=== PATIENT | male | born 1950 | race Caucasian/White ===

== ENCOUNTER 2022-11-03 13:45 | Emergency (ER) | payer OTHER, SELFPAY ==
--- NOTE | ~2022-11-03 | XR_ITS ---
[XR ribs RT 2V ] INDICATION: Right lower rib pain TECHNIQUE: Frontal projection of the upper right ribs, frontal projection of the lower right ribs, ob lique projection of all the right ribs, frontal inspiratory chest x-ray for interpretation. FINDINGS: There are no displaced rib fractures identified. There are no soft tissue abnormality see n. The lungs are clear. IMPRESSION: 1:No acute displaced rib fractures. Reviewed, dictated and finalized at location A.
[2022-11-03 13:55] VITALS: BP 131/71; PULSE 55; RESP 18; TEMP 37.1; O2SAT 99
--- NOTE | 2022-11-03 14:55 | ED.BACK ---
HPI - Back Pain/Injury General Chief Complaint: Back Pain/Injury Stated Complaint: Fall Injury/Right Rib Pain Time Seen by Provider: 11/03/22 14:55 Source: patient Mode of arrival: ambulatory Limitations: no limitations History of Present Illness HPI Narrative: 71-year-old male who presents to [facility] with complaints of falling against open bleacher and hit his right flank region. This morning he stretched and felt a pop along his right posterior rib area with some residual pain to the area especially with movement.. Patient denies any shortness of breath or any pain with deep breathing. Patient has not taken any OTC medication for his discomfort MD elicited complaint: other (right posterior rib pain) Onset (ago): day(s) (3 days inital fall against bleacher this am felt pop) Pain scale (0-10): 4 Treatments prior to arrival: other (none) Work related injury: No Related Data Home Medications Medication Instructions Recorded Confirmed atorvastatin 40 mg tablet mg 11/03/22 Allergies Allergy/AdvReac Type Severity Reaction Status Date / Time No Known Allergies Allergy Verified 11/03/22 14:19 Review of Systems Review of Systems: CONSTITUTIONAL: Denies fever, chills, or sweats. EYES: Denies visual changes, redness, or discharge. ENT: Denies rhinorrhea, congestion, sore throat, or otalgia. CARDIOVASCULAR: Denies chest pain, palpitations, or edema. RESPIRATORY: Denies cough or dyspnea. GASTROINTESTINAL: Denies abdominal pain, nausea, vomiting, or diarrhea. GENITOURINARY: Denies dysuria or hematuria. SKIN: Denies rash or itching.no bruising or redness to right flank posterior rib area MUSCULOSKELETAL: Reports pain along posterior right rib area with some pain, joint pain, or myalgia. NEUROLOGIC: Denies headache, numbness, or weakness. PSYCHIATRIC: Denies anxiety or depression. All systems reviewed & are unremarkable except as noted in HPI and below PMFSH Past Medical History Medical History (Updated 11/05/22 @ 14:59 by Celeste Beck NP) Elevated cholesterol Social History Social History (Updated 11/05/22 @ 15:01 by Celeste Beck NP) Smoking status: Never smoker Alcohol intake: current Alcohol use details: social rare Substance use type: does not use Living arrangements: with family Gender identity (if verbalized by the patient): Male Comments At time of signature, agree with nursing past medical, surgical, social and family history. There is no relevant family history pertinent to the presenting complaint Exam Narrative: GENERAL: Well-appearing, well-nourished, and in no acute distress. HEAD: Normocephalic, atraumatic. EYES: PERRLA and EOMI. ENT: Nares clear, no rhinorrhea or epistaxis. Mucous membranes moist.TM's normal with good light reflex, throat pink no lesions or swelling. NECK: Supple.no lymphadenopathy CHEST: Clear to auscultation. No respiratory distress.SAO2 99% on room air, some discomfort along posterior rib area with movement, no dyspnea noted or any pain with breathing no palpable tenderness HEART: Regular rate and rhythm. No murmur heard. Normal peripheral pulses. ABDOMEN: Soft, nontender, nondistended, normal active bowel sounds. EXTREMITIES: Normal range of motion. No edema. SKIN: Warm, dry, no rash. NEURO: No focal deficits. Alert and oriented x3. Course Course Emergency Course: Patient is aware of diagnosis, understands and agrees to treatment plan.? Anticipatory guidance given.? Patient agrees to follow-up as directed and is aware of reasons to seek care at the emergency department. Portions of this record may have been created with voice recognition software Level of Care: Express Care Visit Vital Signs Vital signs: Vital Signs Temperature 37.1 C 11/03/22 13:55 Pulse Rate 55 L 11/03/22 13:55 Respiratory Rate 18 11/03/22 13:55 Blood Pressure 131/71 11/03/22 13:55 Pulse Oximetry 99 11/03/22 13:55 Oxygen Delivery Room Air 11/03/22 13:55 Te
== END 2022-11-03 15:13 | disposition home or self-care (01) ==
PROVIDERS: Emergency Provider Registered Nurse
DX: S20.211A Contusion of right front wall of thorax, initial encounter (principal); W01.198A Fall on same level from slipping, tripping and stumbling with subsequent striking against other object, initial encounter
CPT/HCPCS: 71100; 99213; G0463